=== PATIENT | male | born 1970 | race Caucasian/White ===

== ENCOUNTER 2020-11-09 14:19 | Emergency (ER) | payer OTHER, SELFPAY ==
[2020-11-09 14:58] VITALS: BMI 43.7
[2020-11-09 15:09] VITALS: BP 155/98; PULSE 73; RESP 16; TEMP 36.9; O2SAT 96
--- NOTE | 2020-11-09 15:21 | ED_ITS ---
HPI - Epistaxis General: Chief complaint: General Medical Stated complaint: NOSEBLEED LAST PM @20 MIN,THIS AM @15,NOW NONSTOP Time Seen by Provider: 11/09/20 15:14 Source: patient Mode of arrival: ambulatory Limitations: no limitations History of Present Illness: HPI Narrative: Patient is a nice 50-year-old male presents to ED today with a complaint of epistaxis. Patient tells me on 10/31 he had a deviated septum repair and polypectomy performed by Dr. Tsai, ENT in [facility]. He states yesterday he had an episode of a nosebleed lasting approximately 20 minutes and subsided after applying pressure. He states this morning he had a nosebleed that lasted approximately 30 minutes that again subsided with pressure. He states he had contacted the ENT office who had agreed to see him this afternoon however nosebleed began again and states it was heavier than the other two so he decided to come to the ED. Patient has not had any recent injury or trauma. He does state this morning he dropped something and bent over to pick it up which was when the nosebleed started. He is not on anticoagulation. MD complaint: epistaxis Location: bilateral nostril Onset (ago): hour(s) Duration: intermittent Context: recent surgery/procedure Associated symptoms: Reports no associated symptoms; Deny fever(s), headache(s), sinus pain or vomiting Treatment prior to arrival: nose pinching Review of Systems Const: Denies: fever(s), chills, body aches, fatigue or malaise Eyes: Denies: change in vision or blurry vision ENMT: Reports: epistaxis; Denies: throat pain, odynophagia or sinus pain Card: Denies: chest pain Resp: Denies: dyspnea GI: Denies: abdominal pain, nausea or vomiting Musc: Denies: neck pain or back pain Skin/Breast: Denies: rash Neuro: Denies: headache(s) or dizziness Physical Exam Const: COMMON NORMALS: no acute distress, average body habitus, patient oriented x3, no limitations, healthy appearing, alert and well nourished HENMT: COMMON NORMALS: normocephalic and atraumatic HEAD & SCALP: normal to inspection, normocephalic and atraumatic FACE & SINUS: normal facial exam NOSE: Other nasal findings present (fresh blood to bilateral nares but no active bleeding) THROAT: posterior oropharynx normal; no postnasal drainage Neuro: COMMON NORMALS: patient oriented x3 SENSORIUM/ORIENTATION: Yes alert Course Consultations: Consultation #1: Dr. Tsai, ENT-stated if there is no active bleeding then nothing to do further from our end; did state we could use Afrin but did not recommend lido/epi soaked cotton ball as bleeding is most likely posterior; recommended BP control, keeping head above heart, no blowing and recommended he contact their office tomorrow if bleeding persists Vital Signs: Vital signs: Vital Signs Temperature 98.4 F 11/09/20 15:09 Pulse Rate 65 11/09/20 16:19 Respiratory Rate 12 11/09/20 16:19 Blood Pressure 140/89 11/09/20 16:19 Pulse Oximetry 94 11/09/20 16:19 MDM - Epistaxis MDM Narrative: Medical decision making narrative: Upon examination patient has no active bleeding. He does have fresh blood in bilateral nares. No visible anterior bleeding. Based on surgery bleeding would be most likely posterior. Any form of packing at this point would be contraindicated given his recent surgery. Afrin instilled in both nares. Discussed recommendations given by Dr. Tripathi. Patient was given nasal clamp and recommended Afrin and compression of bleeding that begins at home. If bleeding is uncontrollable he needs to return to the ED. Otherwise recommended he contact ENT office tomorrow for further instructions. Discharge Plan Discharge Patient Disposition: Home Clinical Impression: Posterior epistaxis Condition: Stable Discharge Orders: Discharge ED (Routine); Ordered 11/09/20 Ordered By: Maddison Ricardo Referrals: Cristal Mansfield APRN [Primary Care Provider] - Patient Instructions: Epistaxis (ED) Activity Restrictions/Additional Instructions: As we discussed if bleeding starts again please apply gentle pressure for 20 to 30 minutes. You may also apply 2 sprays of Afrin to each nare. Dr. Tsai recomm ended continuing to hold off on your aspirin, continuing to monitor blood pressure at home, keeping your head above heart level, and no blowing nose. If bleeding begins and you cannot control it please return to the ED. Please contact Dr. Tsai's office tomorrow if needed. Coding Level of Care Code ED Director Learning Services for Dhiraj Spaulding
[2020-11-09] MEDS: oxymetazoline 0.05% Nasal Spray 15 mL 2 SPRAY NOSTRIL-B (15:36)
[2020-11-09 16:19] VITALS: BP 140/89; PULSE 65; RESP 12; O2SAT 94
== END 2020-11-09 16:20 | disposition home or self-care (01) ==
PROVIDERS: Emergency Provider Physician Assistant; PCP Nurse Practitioner Family
DX: R04.0 Epistaxis (principal)
CPT/HCPCS: 99282